=== PATIENT | female | born 1940 | race Caucasian/White ===

== ENCOUNTER 2023-04-16 13:17 | Emergency (ER) | payer MEDICARE, BC, SELFPAY ==
--- NOTE | ~2023-04-16 | CT_ITS ---
EXAMINATION: CT HEAD WITHOUT CONTRAST CLINICAL INFORMATION: Decreased responsiveness. COMPARISON: None available. TECHNIQUE: Contiguous axial imaging was performed from the skull base to vertex without intravenous administration of contrast. This CT examination was performed using dose optimization techniques as appropriate, variously including the following: *Automated exposure control *Adjustment of mA and/or kV according to patient size (this includes techniques or standardized protocols for targeted exams where dose is matched to indication/reason for exam; i.e. extremities or head) *Use of iterative reconstruction technique DLP: 691 mGy-cm FINDINGS: The lateral, third and fourth ventricles are normally outlined. The cortical sulci and basal cisterns are normally outlined as well. There is moderate bilateral periventricular and central white matter diminished attenuation. There is no acute territorial defect, hemorrhage or midline shift. The extra-axial spaces are unremarkable. Calvarium: Intact. Maxillofacial sinuses and mastoids: Clear as visualized. CT/CT head/brain wo IV con IMPRESSION: Moderate bilateral periventricular and central white matter diminished attenuation is nonspecific but likely microvascular disease. There is no acute intracranial abnormality.
--- NOTE | ~2023-04-16 | XR_ITS ---
EXAMINATION: XR CHEST CLINICAL INFORMATION: Chest pain COMPARISON: None available. TECHNIQUE: 2 views of the chest were obtained. FINDINGS: Pectus excavatum. No significant abnormality is noted involving the heart, lungs, mediastinum, bony thorax or soft tissues. XR/XR chest 2V IMPRESSION: Unremarkable examination.
--- NOTE | 2023-04-16 13:26 | ECG_ITS ---
Test Reason : LEFT ARM PAIN Blood Pressure : / mmHG Vent. Rate : 064 BPM Atrial Rate : 064 BPM P-R Int : 210 ms QRS Dur : 090 ms QT Int : 440 ms P-R-T Axes : 040 -47 083 degrees QTc Int : 453 ms Sinus rhythm with 1st degree A-V block Left anterior fascicular block RSR' or QR pattern in V1 suggests right ventricular conduction delay Abnormal ECG No previous ECGs available Referred By: Rachel Guerrier Electronically Signed By:NAILA CANTU MD
[2023-04-16 13:28] VITALS: BP 167/97; BP 170/80; PULSE 60; PULSE 66; RESP 18; TEMP 36.6; O2SAT 99; BMI 27.6
--- NOTE | 2023-04-16 14:04 | PC.NURSE ---
a&ox3, vss and up to date. pt comes in today d/t LUE pain/numbness/tingling. pt states that she was handling w a stressful situation on the phone when the sx began. pt denies chest pain. pt also c/o increased weakness/lethargy. pt's daughter bedside for support. pt seems to be in no apparent distress at this time. labs drawn and sent to lab. respirations even and unlabored at this time. call concepcion placed within reach.
[2023-04-16 14:05] LABS: MANUAL DIFF FLAG NO
[2023-04-16 14:08] LABS: Basophils Percent Auto 0.7 % (0-2); Eosinophils Absolute Auto 0.2 X10*3/uL (0.0-0.4); Eosinophils Percent Auto 2.8 % (0-4); Hematocrit 42.9 % (37.0-47.0); Hemoglobin 14.4 g/dl (12.0-16.0); Imm Gran Abs Auto 0.01 X10*3/uL (0.00-0.03); Imm Gran Pct Auto 0.2 % (0.0-0.4); Lymphocytes Absolute Auto 2.2 X10*3/uL (1.2-4.9); Mean Corpuscular HGB Conc 33.6 g/dl (31.0-35.0); Mean Corpuscular Volume 92.5 fL (80.0-98.0); Monocytes Absolute Auto 0.4 X10*3/uL (0.1-1.2); Monocytes Percent Auto 7.4 % (2-11); Neutrophils Absolute Auto 2.6 x10*3/uL (2.0-8.3); Neutrophils Percent Auto 48.9 % (45-73); Platelet Count 189 X10*3/uL (160-400); Red Blood Count 4.64 X10*6/uL (4.20-5.50); Red Cell Distribution Width 13.1 % (11.0-16.0); White Blood Count 5.4 X10*3/uL (4.8-10.8)
--- NOTE | 2023-04-16 14:11 | ED.GENADULT ---
HPI - General Adult General Chief complaint: General Medical Stated complaint: L ARM PAIN Time Seen by Provider: 04/16/23 13:25 Source: patient and family (Daughter) Mode of arrival: ambulatory History of Present Illness HPI narrative: 82-year-old female with history of hypertension and depression presents with onset of left arm pain just prior to arrival that was associated with dizziness but denies any headache or shortness of breath and is completely asymptomatic at this time. Patient states that she took all of her medication this morning as prescribed as well as last night. This event occurred after being on the phone for proximally 2 hours and patient also endorses that she has recently lost her of 27 years. Her daughter is at bedside Related Data Allergies Allergy/AdvReac Type Severity Reaction Status Date / Time Unable to Assess Allergy Verified 04/16/23 13:26 Review of Systems Review of Systems: Pertinent positives and negatives as stated in HPI [facility] [place] Past Medical History Source: nursing notes reviewed Social History Social History Alcohol intake: current Smoked in Last 30 Days: No Use of substances other than those prescribed or required for medical reasons: No Advance Directives: No Advance Directives Information Provided: No Physical Exam ED Vital Signs: Vital Signs - 24 hr 04/16/23 13:28 04/16/23 15:01 04/16/23 15:15 Temperature 97.8 F Pulse Rate 66 71 Respiratory Rate 18 16 Blood Pressure 170/80 H 196/98 H 169/87 H Pulse Oximetry 99 96 Oxygen Delivery Method Room Air Room Air BMI result Body Mass Index 27.6 VITAL SIGNS: Reviewed. GENERAL: Well developed, well nourished, in no acute distress. HEAD: Normocephalic/atraumatic EYES: PERRLA, EOMI EARS: Ext canals without abnormality NOSE: Nares patent bilateral OROPHARYNX: no oral lesions noted, posterior pharynx clear NECK: Supple, no adenopathy LUNGS: Normal breath sounds. No adventitious sounds or accessory muscle use. SpO2<99> CARDIOVASCULAR: Regular rate and rhythm without noted murmurs, no JVD or lower extremity edema. ABDOMEN: Soft, non-tender, non-distended with bowel sounds. MUSCULOSKELETAL: No tenderness, deformities, or effusions noted on gross inspection. EXTREMITIES: No cyanosis, clubbing or edema. SKIN: Inspection of the skin reveals no rashes NEUROLOGIC: Alert and oriented x 4. Strength and sensation to light touch were grossly intact x 4, no facial asymmetry, no pronator drift, cranial nerves 2-12 are grossly intact. Medical Decision Making Medical Decision Making [facility] Narrative: 82-year-old female with history and clinical presentation, DDX: Anxiety, ACS, pneumonia, hypertensive, lower clinical suspicion intracranial etiology as patient is nonfocal. I reviewed all investigations and hematologic indices are negative for leukocytosis/left shift there is no evidence of anemia or thrombocytopenia. Coagulation studies are within normal limits. Chemistry indices are grossly within normal limits without ROSEMARIE and there is no electrolyte or liver enzyme abnormalities. High sensitivity troponin is undetectable and EKG is negative for STEMI. Urinalysis is a contaminated sample with presence of 6-10 squamous epithelial cells and patient has no urinary complaints. CT scan is negative for intracranial hemorrhage. Signed out to Dr Schmitt. - f/u CXR - Trop #[id number] Differential Diagnosis Differential Diagnoses: The differential diagnosis associated with the presentation includes Please see the discussion above Admission/Observation Consideration of admission/observation: Escalation of care including admission/observation considered Please see the discussion above Lab Data [facility] Lab Attestation statement: I reviewed the patient's lab results. Please see the discussion above 04/16/23 14:01 04/16/23 14:01 Labs: Lab Results 04/16/23 04/16/23 Range/Units 14:01 15:01 WBC 5.4 (4.8-10.8) X10*3/uL RBC 4.64 (4.20-5.50) X10*6/uL Hgb 14.4 (12.0-16.0) g/dl Hct 42.9 (37.0-47.0) % MCV 92.5 (80.0-98.0) fL MCH 31.0 (27.0-33.0) pg MCHC 33.6 (31.0-35.0) g/dl RDW 13.1 (11.0-16.0) % Plt Count 189 (160-400) X10*3/uL MPV 11.0 (9.4-12.3) fL Immature Gran % (Auto) 0.2 (0.0-0.4) % Neut % (Auto) 48.9 (45-73) % Lymph % (Auto) 40.0 (20-40) % [place] % (Auto) 7.4 (2-11) % Eos % (Auto) 2.8 (0-4) % Baso % (Auto) 0.7 (0-2) % Lymph # (Auto) 2.2 (1.2-4.9) X10*3/uL [place] # (Auto) 0.4 (0.1-1.2) X10*3/uL Eos # (Auto) 0.2 (0.0-0.4) X10*3/uL Baso # (Auto) 0.0 (0.0-0.2) X10*3/uL Abs Immat Gran (auto) 0.01 (0.00-0.03) X10*3/uL Absolute Neuts (auto) 2.6 (2.0-8.3) x10*3/uL Absolute Nucleated RBC 0.000 (0.0-0.012) X10*3/uL Nucleated RBC % (auto) 0.0 (0.0-0.2) /100WBC PT 12.1 (11.1-13.3) SEC INR 1.0 (0.9-1.1) Sodium 141 (135-145) mmol/L Potassium 3.8 (3.3-5.1) mmol/L Chloride 109 H (96-108) mmol/L Carbon Dioxide 20 L (22-29) mmol/L Anion Gap 16 (12-20) BUN 16 (9-16) mg/dL Creatinine 1.01 (0.5-1.4) mg/dL Estim Creat Clear Calc 46.7 Estimated GFR 53 Random Glucose 96 (60-115) mg/dL Calcium 9.5 (8.4-10.2) mg/dL Total Bilirubin 0.6 (0.0-1.0) mg/dL AST 25 (5-31) U/L ALT 14 (0-31) U/L Alkaline Phosphatase 60 (39-117) U/L Troponin I High Sens < 2.7 (<3.5-17.0) ng/L Total Protein 7.2 (6.5-8.0) g/dL Albumin 4.0 (3.5-5.0) g/dL Urine Color Yellow Urine Appearance Clear Urine pH 7.0 (5.0-9.0) Ur Specific [place] 1.015 (1.005-1.025) Urine Protein Negative (Neg-Trace) mg/dL Urine Glucose (UA) Negative (Negative) mg/dL Urine Ketones Negative (Negative) mg/dL Urine Blood Negative (Negative) Urine Nitrite Negative (Negative) Ur Leukocyte Esterase Moderate (2+) H (Negative) Urine RBC 0-2 (0-2) /HPF Urine WBC 6-10 (0-5) /HPF Ur Squamous Epith Cells 6-10 (0-2) /HPF Urine Bacteria Trace (None Seen) Hyaline Casts 0-2 (0-2) /LPF Independent Interpretation I performed an independent interpretation of an: EKG Interpretation: Sinus rhythm with first-degree AV block, HR-64, no STEMI, IL-210, QRS/QTC are within normal limits. No EKG available for comparison Chronic Conditions Patient?s care impacted by: Hypertension and Other Depression Discharge Plan Discharge Clinical Impression: Anxiety, Hypertensive crisis, Arm pain, left Patient Disposition: Still a Patient
[2023-04-16 14:14] LABS: Prothrombin Time 12.1 SEC (11.1-13.3)
[2023-04-16 14:21] LABS: Alanine Aminotransferase 14 U/L (0-31); Alkaline Phosphatase 60 U/L (39-117); Anion Gap 16 (12-20); Aspartate Amino Transferase 25 U/L (5-31); Bilirubin Total 0.6 mg/dL (0.0-1.0); Blood Urea Nitrogen 16 mg/dL (9-16); Calcium 9.5 mg/dL (8.4-10.2); Carbon Dioxide 20 mmol/L (22-29); Chloride 109 mmol/L (96-108); Creatinine Clr Calc Pharmacy 46.7; Estimated Glomerular Filt Rate 53; Glucose Random 96 mg/dL (60-115); Potassium 3.8 mmol/L (3.3-5.1); Sodium 141 mmol/L (135-145); Total Protein 7.2 g/dL (6.5-8.0)
[2023-04-16 14:40] LABS: Troponin-I High Sensitivity < 2.7 ng/L (<3.5-17.0)
[2023-04-16 15:01] VITALS: BP 196/98; PULSE 71; RESP 16; O2SAT 96
--- NOTE | 2023-04-16 15:01 | PC.NURSE ---
urine obtained and sent to lab.
[2023-04-16 15:14] LABS: Appearance Urine Clear; Color Urine Yellow; Glucose Urine UA Negative (Negative); Leukocyte Esterase Urine Moderate (2+) (Negative); Nitrite Urine Negative (Negative); Specific Gravity - Urine 1.015 (1.005-1.025); UMIC TRIGGER UACC YES; Urine Blood Negative (Negative); Urine Ketones Negative (Negative); Urine Protein Negative (Neg-Trace)
[2023-04-16 15:15] VITALS: BP 169/87
[2023-04-16 15:24] LABS: Bacteria Urine Trace (None Seen); Hyaline Casts Urine 0-2 /LPF (0-2); RBC Urine 0-2 /HPF (0-2); UACC Culture Trigger YES
[2023-04-16 15:49] VITALS: TEMP 36.3
--- NOTE | 2023-04-16 17:46 | PC.NURSE ---
tech obtaining repeat troponin at this time.
[2023-04-16 18:06] VITALS: BP 175/91; PULSE 61; RESP 18; TEMP 36.3; O2SAT 99
[2023-04-16 18:19] LABS: Troponin-I High Sensitivity 3.7 ng/L (<3.5-17.0)
== END 2023-04-16 18:45 | disposition home or self-care (01) ==
PROVIDERS: Emergency Provider Student in an Organized Health Care Education/Training Program
DX: F41.9 Anxiety disorder, unspecified (principal); I16.9 Hypertensive crisis, unspecified; M79.602 Pain in left arm; R42 Dizziness and giddiness
CPT/HCPCS: 36415; 70450; 71046; 80053; 81001; 84484; 85025; 85610; 87086; 93005; 99284